=== PATIENT | female | born 1940 | race Caucasian/White ===

== ENCOUNTER 2022-12-13 04:04 | Day surgery (SDC) | payer OTHER, MEDICARE ==
[2022-12-10 09:25] VITALS: BMI 20.7
[2022-12-13] MEDS ORDERED: LIDOCAINE HCL 1%, 10 MG/ML (10ML VIAL) MDV ONE (11:12)
[2022-12-13] MEDS ORDERED: BUPIVACAINE HCL/PF 0.5% (5MG/ML) 10 ML VIAL ONE (11:13)
[2022-12-13] MEDS ORDERED: PROPOFOL 20 ML ONE (12:47)
[2022-12-13] MEDS ORDERED: MIDAZOLAM HCL 2 MG/2 ML SINGLE DOSE VIAL ONE (12:47)
[2022-12-13] MEDS ORDERED: ceFAZolin SODIUM 1 GM VIAL ONE (12:58)
[2022-12-13] MEDS ORDERED: KETOROLAC TROMETHAMINE 30 MG/1 ML VIAL ONE (13:01)
[2022-12-13] MEDS ORDERED: ceFAZolin SODIUM 1 GM VIAL IVPB ONE (13:09)
[2022-12-13] MEDS ORDERED: BUPIVACAINE HCL/PF 0.5% (5 MG/ML) 30 ML VIAL IJ ONE (13:14)
[2022-12-13] MEDS ORDERED: LIDOCAINE HCL 1%, 10 MG/ML (20ML VIAL) INF ONE (13:14)
[2022-12-13 13:45] VITALS: RESP 20
[2022-12-13 15:20] VITALS: BP 143/50; PULSE 75; TEMP 97
== END 2022-12-13 15:15 | disposition home or self-care (01) ==
LOC: JASU-SURG 04:04
PROVIDERS: ATTEND Orthopaedic Surgery
PROC: 0JBJ0ZZ Excision of Right Hand Subcutaneous Tissue and Fascia, Open Approach (ICD-10-PCS; principal; 2022-12-13 12:00)
DX: R22.31 Localized swelling, mass and lump, right upper limb (principal)
CPT/HCPCS: 88305-TC

== ENCOUNTER 2024-10-08 05:10 | Day surgery (SDC) | payer OTHER, MEDICARE ==
[2024-10-06 15:50] VITALS: BMI 20.8
[2024-10-08] MEDS ORDERED: ACETAMINOPHEN 500 MG TABLET (FP) PO PRN (08:37)
[2024-10-08 10:19] VITALS: RESP 18
[2024-10-08] MEDS ORDERED: BUPIVACAINE HCL/PF 0.25% (2.5MG/ML) 10 ML VIAL ONE (10:54)
[2024-10-08 14:09] VITALS: BP 147/56; PULSE 67; TEMP 97.9
== END 2024-10-08 12:00 | disposition home or self-care (01) ==
LOC: JASU-SURG 05:10
PROVIDERS: ATTEND Pain Medicine Pain Medicine
PROC: 3E0U3BZ Introduction of Anesthetic Agent into Joints, Percutaneous Approach (ICD-10-PCS; 2024-10-08)
PROC: 3E0U33Z Introduction of Anti-inflammatory into Joints, Percutaneous Approach (ICD-10-PCS; principal; 2024-10-08 11:16)
DX: M16.12 Unilateral primary osteoarthritis, left hip (principal)
CPT/HCPCS: 76000-TC-FY